=== PATIENT | male | born 1985 | race Hispanic/Latino ===

== ENCOUNTER 2016-05-30 01:23 | Inpatient (IN) | payer MEDICAID ==
[2016-05-30 01:23] VITALS: BMI 21.9
--- NOTE | 2016-05-30 01:49 | C.PDOC ---
History Of Present Illness Pt was transferred for psychiatric admission. Pt was medically cleared at the referring facility. Time Seen by Provider: 05/30/16 01:41 Chief Complaint (Nursing): Psychiatric Evaluation History Per: Patient History/Exam Limitations: clinical condition Current Symptoms Are (Timing): Still Present Associated Symptoms: Paranoia Additional History Per: Prior Records Past Medical History Reviewed: Historical Data, Nursing Documentation, Vital Signs Vital Signs: Last Vital Signs Temp 98.5 F 05/30/16 01:34 Pulse 91 H 05/30/16 01:34 Resp 20 05/30/16 01:34 BP 147/87 05/30/16 01:34 Pulse Ox 96 05/30/16 01:34 - Medical History PMH: Asthma, Bipolar Disorder Family History: States: Unknown Family Hx - Social History Hx Tobacco Use: Yes Hx Alcohol Use: Yes Hx Substance Use: No - Immunization History Hx Tetanus Toxoid Vaccination: No Hx Influenza Vaccination: No Hx Pneumococcal Vaccination: No Review Of Systems Review Of Systems: ROS cannot be obtained secondary to pt's inabilty to answer questions. Physical Exam - Physical Exam Appears: No Acute Distress, Other (Bizare affect) Skin: Normal Color, Warm, Dry Head: Atraumatic Eye(s): bilateral: PERRL Neck: Normal ROM, Supple Cardiovascular: Rhythm Regular Respiratory: Normal Breath Sounds, No Accessory Muscle Use Gastrointestinal/Abdominal: Soft Extremity: Normal ROM, No Deformity Neurological/Psych: Inappropriate Response To Command ED Course And Treatment O2 Sat by Pulse Oximetry: 96 Pulse Ox Interpretation: Normal Disposition - Disposition Disposition: HOSPITALIZED Disposition Time: 01:48 Condition: STABLE - Clinical Impression Clinical Impression: Psychosis Decision To Admit - Pt Status Changed To: Hospital Disposition Of: Inpatient - Admit Certification Admit to Inpatient:: After my assessment, the patient will require hospitalization for at least two midnights. This is because of the severity of symptoms shown, intensity of services needed, and/or the medical risk in this patient being treated as an outpatient. - InPatient: Physician Admission Certification: I certify that this patient requires 2 or more midnights of care for the following reason:: Psych. - . Bed Request Type: Psychiatry Admitting Physician: Megan Estrada Patient Diagnosis: Psychosis
--- NOTE | 2016-05-30 22:23 | PCM.PSYCH ---
Initial Psychiatric Evaluation - Initial Psychiatric Evaluation Type of Admission: Voluntary Legal Status: Capacity Chief Complaint (in patient's own words): "They think I am unstable" History of Present Illness and Precipitating Events: The pt is seen, chart reviewed (incl. previous ED notes) and case discussed with the team and admin. This is a 30 y/o LM, single, no child, lives in [place] with a room mate (but his mo is also in [place]), unemployed, on disability. He is transferred from [place] ED where he spent almost 2 days after being brought by the police in restraints. His mo had called them the pt was acting bizarre, agitated and delusional. He thought his mo was possessed by the devil and that he would take it out. He was also talking to self, not making sense and pacing around. In ED, he was put in restraints couple of times and given several IM injections. He was also screened and accepted by [facility] for involuntary admission, However, while waiting for a bed at [facility], he agreed to sign in and was somewhat calmer and then transferred to psych unit. As per his mo he was stressed about a housing problem. Here, he was, again, pacing the halls, denied psych illness and stated he would only take risperdal which he used before and stopped (and relapsed). He was at times threatening and he exposed self to other patients and tried to urinate in the dining room. When seen by the insurance underwriter and 2 med students, he was somewhat calmer and cooperative. He reported that he had moved 3 months ago from [facility] his mo was here. He is not seeing any psychiatrist and not taking meds. He doesn't think he has an illness and he talks in detail about his thoughts on life, friendship, etc. He is very thought disordered, paranoid and delusional. He tries to minimize or hide but he is quite suspicious and has significant grandiosity. He is also sexually preoccupied - exposing self, staring females long... He admitted to having anger issues but contracted for safety. Denied SI and HI and no halluc. elicited. He also denied drug-alcohol use. Past psych hx: He was admitted previously in [facility] and likely in [place]. He is a poor historian. Medical problems: "Maybe asthma but I beat it" Family psych hx: Unknown Current Medications: Active Medications Generic Name Dose Route Start Last Admin Trade Name Freq PRN Reason Stop Dose Admin Acetaminophen 650 mg 05/30/16 04:45 Tylenol 325mg Tab PO Q6 PRN Pain, Mild (1-3) Benztropine Mesylate 2 mg 05/30/16 04:45 Cogentin PO Q6 PRN Extra Pyramidal Symptoms Benztropine Mesylate 1 mg 05/30/16 10:00 05/30/16 10:00 Cogentin PO 1 mg DAILY MAY Administration Diphenhydramine HCl 50 mg 05/30/16 04:45 Benadryl PO Q6 PRN Extra Pyramidal Symptoms Haloperidol 5 mg 05/30/16 04:45 Haldol PO Q8 PRN Moderate Agitation Haloperidol Lactate 5 mg 05/30/16 04:45 Haldol IM Q8 PRN Moderate Agitation Hydroxyzine HCl 25 mg 05/30/16 04:46 Atarax PO Q6 PRN Anxiety Lorazepam 1 mg 05/30/16 04:45 05/30/16 10:00 Ativan PO 1 mg Q6 PRN Administration Anxiety Lorazepam 1 mg 05/30/16 14:00 05/30/16 17:14 Ativan PO 1 mg TID MAY Administration Risperidone 2 mg 05/30/16 11:45 05/30/16 17:15 Risperdal Tab PO 2 mg BID MAY Administration Trazodone HCl 50 mg 05/30/16 22:00 Desyrel PO HS MAY Past Psychiatric History - Past Psychiatric History Previous Treatment History: Inpatient Pertinent Medical Hx (Current Medical&Sleep Prob, Allergies): Allergies Allergy/AdvReac Type Severity Reaction Status Date / Time No Known Allergies Allergy Verified 05/28/16 02:42 Risperidone 1 mg PO DAILY 05/30/16 Review of Systems - Neurological Neurological: UNREMARKABLE - Psychiatric Psychiatric: Abnormal Sleep Pattern, Difficulty Concentrating, Irritability, Mood Swings, Paranoia. absent: Hallucinations, Homicidal Ideation, Suicidal Ideation Mental Status Examination - Personal Presentation Personal Presentation: Looks stated age - Affect Affect: Blunted (and intense) - Motor Activity Motor Activity: Psychomotor Agitation - Reliability in Providing Information Reliability in Providing Information: Poor, due to alteration in thoughts - Speech Speech: Disorganized - Mood Mood: Other (irate) - Formal Thought Process Formal Thought Process: Delusions, Paranoia, Loosening of associations, Circumstantial, Perservation - Cognitive Functions Orientation: Person, Place, Situation, Time Sensorium: Alert Attention/Concentration: Easily distracted Estimate of Intelligence: Below average Judgement: Imparied, as evidence by: Poor judgement Memory: Recent impaired, as evidence by: Inability to recall events of the day, Remote impaired as evidenced by: Inability to recall sig life events - Risk Risk: Diminished functioning - Strength & Assets Inventory Strength & Assets Inventory: Family support - Limitations Limitations: Other (unemployed) DSM 5 DX - DSM 5 DSM 5 Diagnosis: Schizoaffective d/o - bipolar type - Recommended/Plan of Treatment Treatment Recommendations and Plan of Treatment: - Risperdal will be increased to 4 mg/d - Cogentin - Ativan 1 mg TID for now for anxiety/agitation - prn meds - Close observation for safety - De-escalation techniques - Will introduce depakote or lithium when he is more cooperative and accepting meds - After care: [facility] or [facility] day program. Consider [facility] too - Apply for ICMS 33 min Projected ELOS: 7 days Prognosis: Good with treatment Discharge Plan and Discharge Criteria: No agitation, susie Refer to some DTP - Smoking Cessation Smoking Cessation Initiated: No Reason for not providing: not smoking
--- NOTE | 2016-05-31 14:52 | PCM.PYCHPN ---
Psychiatric Progress Note - Psychiatric Progress Note Patient seen today, length of contact: 17 min Patient Chief Complaint: "I am fine" Problems Identified/Issues Discussed: The pt is seen, chart reviewed and case discussed. He is unexpectedly compliant with meds so far and in fact he got somewhat over sedated and his ativan is decreased. Still has no insight into condition, and is irate, paranoid, illogical, thought disordered and has odd/flat yet intense affect with deep stares at times. Psychoed given with minimal effect. Medication Change: Yes (decrease ativan. Risperdal is 2 mg BID) Medical Record Reviewed: Yes Mental Status Examination - Cognitive Function Orientation: Person, Place, Situation, Time Memory: Impaired Attention: Poor Concentration: Poor Association: Loose Fund of Knowledge: Poor - Mood Mood: Other (irate) - Affect Affect: Blunted (and intense) - Speech Speech: Slurred - Formal Thought Process Formal Thought Process: Delusions, Paranoia, Loosening of associations, Circumstantial, Perservation - Suicidal Ideation Suicidal Ideation: No - Homicidal Ideation Homicidal Ideation: No Goal/Treatment Plan - Goal/Treatment Plan Need for Continued Stay: Discharge may exacerbated symptoms, Severe functional impairment Progress Toward Problem(s) and Goals/Treatment Plan: - Risperdal increased to 4 mg/d - Cogentin - Ativan 1 mg BID for now for anxiety/agitation - prn meds - Close observation for safety - De-escalation techniques - Will introduce depakote or lithium when he is more cooperative and accepting meds - After care: [facility] or [facility] day program. Consider [facility] too - [facility]
--- NOTE | 2016-06-01 12:53 | PCM.PYCHPN ---
Psychiatric Progress Note - Psychiatric Progress Note Patient seen today, length of contact: 17 min Patient Chief Complaint: i am lucila Problems Identified/Issues Discussed: Patient seen and evaluated, chart reviewed and discussed with the nurse. Patient appeared a bit more organized but remained internally preoccupied. Patient was pacing back and forth in his room. However denied any suicidal ideation or homicidal ideation. He is taking medication and denies any side effects. Medication Change: Yes (decrease ativan. Risperdal is 2 mg BID) Medical Record Reviewed: Yes Mental Status Examination - Cognitive Function Orientation: Person, Place, Situation, Time Memory: Impaired Attention: Poor Concentration: Poor Association: Loose Fund of Knowledge: Poor - Mood Mood: Other (irate) - Affect Affect: Blunted (and intense) - Speech Speech: Slurred - Formal Thought Process Formal Thought Process: Delusions, Paranoia, Loosening of associations, Circumstantial, Perservation - Suicidal Ideation Suicidal Ideation: No - Homicidal Ideation Homicidal Ideation: No Goal/Treatment Plan - Goal/Treatment Plan Need for Continued Stay: Discharge may exacerbated symptoms, Severe functional impairment Progress Toward Problem(s) and Goals/Treatment Plan: Schizoaffective d/o - bipolar type - Risperdal will be increased to 4 mg/d - Cogentin - Ativan 1 mg TID for now for anxiety/agitation - prn meds - Close observation for safety - De-escalation techniques - Will introduce depakote or lithium when he is more cooperative and accepting meds - After care: [facility] or [facility] day program. Consider [facility] too - Apply for ICMS - Smoking Cessation Smoking Cessation Initiated: No
[2016-06-02 07:22] VITALS: RESP 18; O2SAT 99
--- NOTE | 2016-06-02 22:09 | PCM.PYCHPN ---
Psychiatric Progress Note - Psychiatric Progress Note Patient seen today, length of contact: 17 min Patient Chief Complaint: i want to leave Problems Identified/Issues Discussed: Patient seen and evaluated, chart reviewed and discussed with the nurse. As per the staff, pt remained calm down and continued to take medications and denied any side effects. Patient appeared more organized but remained suspicious and delusional. Spoke with the grand mother. as per her, pt is mentally challenged and he has learning disorder. Pt denied any AVH or any SI/HI. Patient was still pacing back and forth in his room. He is taking medication and denies any side effects. Medication Change: Yes (decrease ativan. Risperdal is 2 mg BID) Medical Record Reviewed: Yes Mental Status Examination - Cognitive Function Orientation: Person, Place, Situation, Time Memory: Impaired Attention: WNL Concentration: WNL Association: Loose Fund of Knowledge: WNL - Mood Mood: Anxious - Affect Affect: Constricted - Speech Speech: Slurred - Formal Thought Process Formal Thought Process: Delusions, Loosening of associations, Perservation - Suicidal Ideation Suicidal Ideation: No - Homicidal Ideation Homicidal Ideation: No Goal/Treatment Plan - Goal/Treatment Plan Need for Continued Stay: Discharge may exacerbated symptoms, Severe functional impairment Progress Toward Problem(s) and Goals/Treatment Plan: Schizoaffective d/o - bipolar type - Risperdal will be increased to 4 mg/d - Cogentin - Ativan 1 mg TID for now for anxiety/agitation - prn meds - Close observation for safety - De-escalation techniques - Will introduce depakote or lithium when he is more cooperative and accepting meds - After care: [facility] Consider [facility] too - Apply for ICMS - Smoking Cessation Smoking Cessation Initiated: No
[2016-06-03 11:00] VITALS: BP 112/79; PULSE 87; TEMP 98
--- NOTE | 2016-06-06 23:55 | PCM.PYCHDC ---
Mental Status Examination - Mental Status Examination Orientation: Person, Place, Situation, Time Memory: Intact Mood: Neutral Affect: Constricted Speech: Soft Attention: WNL Concentration: WNL Association: WNL Fund of Knowledge: WNL Formal Thought Process: Loosening of associations Description of patient's judgement and insight: good, fair Psychotic Thoughts and Behaviors: denies any AVH Suicidal Ideation: No Current Homicidal Ideation?: No Discharge Summary - Discharge Note Reason for Hospitalization: This is a 30 y/o LM, single, no child, lives in [place] with a room mate (but his mo is also in [place]), unemployed, on disability. He is transferred from [place] ED where he spent almost 2 days after being brought by the police in restraints. His mo had called them the pt was acting bizarre, agitated and delusional. He thought his mo was possessed by the devil and that he would take it out. He was also talking to self, not making sense and pacing around. In ED, he was put in restraints couple of times and given several IM injections. He was also screened and accepted by [facility] for involuntary admission, However, while waiting for a bed at [facility], he agreed to sign in and was somewhat calmer and then transferred to psych unit. As per his mo he was stressed about a housing problem. Here, he was, again, pacing the halls, denied psych illness and stated he would only take risperdal which he used before and stopped (and relapsed). He was at times threatening and he exposed self to other patients and tried to urinate in the dining room. When seen by the sports book writer and 2 med students, he was somewhat calmer and cooperative. He reported that he had moved 3 months ago from [facility] his mo was here. He is not seeing any psychiatrist and not taking meds. He doesn't think he has an illness and he talks in detail about his thoughts on life, friendship, etc. He is very thought disordered, paranoid and delusional. He tries to minimize or hide but he is quite suspicious and has significant grandiosity. He is also sexually preoccupied - exposing self, staring females long... He admitted to having anger issues but contracted for safety. Denied SI and HI and no halluc. elicited. He also denied drug-alcohol use. Consultations:: List each consultation separately and include: 1. Reason for request. 2. Findings. 3. Follow-up Summary of Hospital Course include:: 1. Description of specific treatment plan utilized for patients during their course of treatmen. 2. Summarize the time- course for resolution of acute symptoms and/or regressed behaviors. 3. Describe issues identified and worked on during hospitalization. 4. Describe medication utilized. 5. Describe medical problems identified and treated. 6. Reassessment of suicide risk Summary of Hospital Course: During the course of his stay, patient (pt) started progressively improving and he no longer remained irritable, depressed, suicidal and paranoid. His mood, voices and paranoia were improved and he started attending groups and meetings and started socializing. He started taking care of his hygiene and ADLs, and he no longer remained disheveled and malodorous. However he remained delusional and suspicious because of his learning disorder. However patient denied any feelings of hopelessness, helplessness, and worthlessness, denied any problem with the sleep or appetite, denied suicidal ideation or homicidal ideation. Pt denied any auditory or visual hallucinations. Some changes were made in his current medications and patient was discharged on following medications. He tolerated these medications very well and denied any side effects. - Final Diagnosis (DSM 5) Condition upon Discharge: STABLE DSM 5: Schizoaffective d/o - bipolar type Learning disorder Disposition: HOME/ ROUTINE Follow-up Treatment Plan: Education: Pt was educated and counseled about the risks and benefits of taking and not taking medications. Pt was educated and counseled about the risks of drinking and abusing drugs. Pt was educated and counseled to go to the ER or call 911 if pt develop suicidal ideation or homicidal ideation, worsening of symptoms or severe side effects of the meds. Prescriptions/Medication Reconciliation: Benztropine [Cogentin] 1 mg PO BID #60 tab clonazePAM [Klonopin] 0.5 mg PO BID #60 tab Gabapentin [Neurontin] 300 mg PO BID #60 cap risperiDONE [RisperDAL Tab] 2 mg PO DAILY #30 tab risperiDONE [RisperDAL Tab] 3 mg PO HS #30 tab traZODone [Desyrel] 100 mg PO HS #30 tab - Smoking Cessation Smoking Cessation Medication prescribed: No - Antipsychotic Medications Pt discharged on 2 or more routine antipsychotic medications: No
== END 2016-06-03 11:30 | disposition home or self-care (01) | DRG 430 ==
LOC: C.ER 01:23 → C.5E 01:49
PROVIDERS: ADMIT Psychiatry & Neurology Psychiatry; ATTEND Psychiatry & Neurology Psychiatry
PROC: GZ3ZZZZ Medication Management (ICD-10-PCS; principal; 2016-05-30)
DX: F25.0 Schizoaffective disorder, bipolar type (principal); Z91.14 Patient's other noncompliance with medication regimen; F17.210 Nicotine dependence, cigarettes, uncomplicated; J45.909 Unspecified asthma, uncomplicated